=== PATIENT | male | born 1950 | race Caucasian/White ===

== ENCOUNTER → 2016-06-14 16:58 | Outpatient (CLI) | payer MEDICARE, BC | END | disposition home or self-care (01) | LOC: D.CT 06-11 15:00 | DX: R06.02 Shortness of breath (principal) ==

== ENCOUNTER → 2016-08-16 08:40 | Outpatient (CLI) | payer MEDICARE, BC | END | disposition home or self-care (01) | LOC: D.US 07-19 11:30 | DX: E03.9 Hypothyroidism, unspecified (principal) ==

== ENCOUNTER → 2018-08-04 09:04 | Outpatient (CLI) | payer MEDICARE, BC ==
--- NOTE | 2018-08-09 14:40 | EC ---
PATIENT:ANDREWS FELIZ DATE OF SERVICE: 08/04/18 SEX: M MEDICAL RECORD: [id number] DATE OF : [birth year] LOCATION:D[facility] AGE OF PATIENT: 68 ADMISSION DATE: 08/04/18 REFERRING PHYSICIAN: INTERPRETING PHYSICIAN: RENETTA CARRANZA MD ECHOCARDIOGRAM REPORT ECHO CHARGES 4 ECHO COMPLETE Date: 08/04/18 CLINICAL DIAGNOSIS: RESENDEZ H/O CAD ECHOCARDIOGRAPHIC MEASUREMENTS (adult normal given) AC root (d.<3.7cm) 3.5 cm LV Septum d (<1.2 cm> 1.1 cm Valve Excursion 2.1 cm LV Septum (systole) 1.8 cm Left Atria (s.<4.0cm> 4.4 cm LVPW d(<1.2cm) 1.4 cm RV (d.<2.3cm) 2.2 cm LVPW (sytole) 2.1 cm LV diastole(<5.6CM) 5.4 cm MV E-F(>70mm/sec) cm LV systole 2.5 cm LVOT Diameter 1.9 cm MV exc.(>10mm) cm Est.ejection fraction (50-75%) % DOPPLER: LVIT cm/sec A 77.0 cm/sec E 56.0 cm/sec LA cm/sec RVSP 15.4 mmHg LVOT 87.0 cm/sec AOP1/2T m/s Asc. Ao 128 cm/sec RVOT 55.0 cm/sec RA cm/sec PA 78.0 cm/sec AV Gradient Peak 6.5 mmHg AV Mean 3.4 mmHg AV Area 2.1 cm MV Gradient Peak 4.1 mmHg MV Mean 1.6 mmHg MV Area cm COMMENTS: Casing Operator: 1 RAYNA FELDMANOE Convertible Power Shovel Operator: 3 Dr. Reyes TAPE# PACS Pericardial Effusion N DATE OF SERVICE: Adequate 2D, color flow, spectral Doppler, and M-mode. Borderline LVH. LV internal dimension is normal. Wall motion is normal. EF is greater than or equal to 55%. Aortic valve is tricuspid. No evidence of stenosis by Doppler interrogation. Left atrium is dilated at 4.4 cm. Mitral valve shows no prolapse. Trace MR. Right-sided chamber grossly normal. Trace TR. TRANSINT:[id number] Voice Confirmation ID: [id number] DOCUMENT ID: [id number] ECHOCARDIOGRAM REPORT [id number] ANDREWS FELIZ,RENETTA Mariee MD at 1440 CC: [id number] DICTATION DATE: 08/08/18 1130 ZIPPER MEASURER: 08/08/18 1208 DEP CLI 08/04/18 [place] [id number] [place] [id number]
== END | disposition home or self-care (01) ==
LOC: D.HCCARDIO 09:00
PROVIDERS: ATTEND Internal Medicine Interventional Cardiology
DX: I25.10 Atherosclerotic heart disease of native coronary artery without angina pectoris (principal)

== ENCOUNTER → 2019-10-08 12:33 | Outpatient (CLI) | payer MEDICARE, BC ==
--- NOTE | ~2019-10-08 | EC ---
PATIENT:ANDREWS FELIZ DATE OF SERVICE: 10/08/19 SEX: M MEDICAL RECORD: [id number] DATE OF : 50 LOCATION:D[facility] AGE OF PATIENT: 69 ADMISSION DATE: 10/08/19 REFERRING PHYSICIAN: INTERPRETING PHYSICIAN: RENETTA CARRANZA MD ECHOCARDIOGRAM REPORT ECHO CHARGES 4 ECHO COMPLETE Date: 10/08/19 CLINICAL DIAGNOSIS: HX OF CAD/DYSPNEA TRACE MR/TR ECHOCARDIOGRAPHIC MEASUREMENTS (adult normal given) AC root (d.<3.7cm) 3.5 cm LV Septum d (<1.2 cm> 1.1 cm Valve Excursion 1.9 cm LV Septum (systole) 1.4 cm Left Atria (s.<4.0cm> 3.1 cm LVPW d(<1.2cm) 1.4 cm RV (d.<2.3cm) 3.3 cm LVPW (sytole) 1.6 cm LV diastole(<5.6CM) 5.0 cm MV E-F(>70mm/sec) cm LV systole 3.3 cm LVOT Diameter 2.0 cm MV exc.(>10mm) 1.3 cm Est.ejection fraction (50-75%) % DOPPLER: LVIT cm/sec A 0102 cm/sec E 70. cm/sec LA cm/sec RVSP 23 mmHg LVOT 114 cm/sec AOP1/2T m/s Asc. Ao 143 cm/sec RVOT 80 cm/sec RA cm/sec PA 103 cm/sec AV Gradient Peak 8.16 mmHg AV Mean 4.15 mmHg AV Area 2.5 cm MV Gradient Peak 3.75 mmHg MV Mean 1.32 mmHg MV Area cm COMMENTS: Commercial Center Manager: 2 BETO TERRELL Intelligence Agent: 3 Dr. Reyes TAPE# PACS Pericardial Effusion N DATE OF SERVICE: Adequate 2D, color flow imaging, spectral Doppler and M-mode. Borderline LVH. LV internal dimension is normal. Wall motion is normal. EF is greater than or equal to 55%. Aortic valve is tricuspid. No evidence of stenosis by Doppler interrogation. Left atrium is normal at 3.1 cm. Mitral valve shows prolapse Trace MR. Right-sided chambers grossly normal. Trace TR. TRANSINT:[id number] Voice Confirmation ID: [id number] DOCUMENT ID: [id number] ECHOCARDIOGRAM REPORT [id number] ANDREWS FELIZ GREGORY A MD CC: [id number] DICTATION DATE: 10/09/19 1623 BLANK DRILLER: 10/10/19 0139 DEP CLI 10/08/19 [place] [id number] [place] [address]
== END | disposition home or self-care (01) ==
LOC: D.HCCECHO 08-14 11:30
PROVIDERS: ATTEND Internal Medicine Interventional Cardiology
DX: R06.02 Shortness of breath (principal)